=== PATIENT | female | born 1945 | race Caucasian/White ===

== ENCOUNTER → 2016-09-16 | Outpatient (CLI) | payer MEDICARE ==
[~2016-09-16] MED LIST: BENA25TA8 PO; CITA20TA4 PO; CLON.5 PO; DIPH25CA PO; LEVO25TA4 PO; LIPI10TA PO; MILK250C PO; MILK250C2 PO; MULT-135 PO; RED600TA PO; REDCAP2 PO; SINE10100 PO; SYNT25TA PO; TAB-TAB PO; VITA-13 PO; VITA100017 PO; VITA100036 PO; VITA10007 PO; VITA50TA PO; ZOLO50TA PO
--- NOTE | 2016-09-17 22:12 | EKG ---
Date Performed: 09/16/2016 Time Performed: 12:30:27 PTAGE: 71 years EKG: Sinus rhythm WITH SHORT KS INTERVAL Compared to previous tracing, the KS interval has shortened. BORDERLINE ECG PREVIOUS TRACING : 04/24/2015 10.36 DOCTOR: Louise Kraus Interpretating Date/Time 09/17/2016 22:10:23
== END ==
LOC: HCAV 12:18
PROVIDERS: ATTEND Surgery
DX: C80.1 Malignant (primary) neoplasm, unspecified (principal); R94.31 Abnormal electrocardiogram [ECG] [EKG]
CPT/HCPCS: 93005

== ENCOUNTER → 2016-09-29 | Day surgery (SDC) | payer MEDICARE ==
[~2016-09-29] VITALS: Ht 170.2 cm; Wt 87.2 kg
[~2016-09-29] MED LIST changes: +*Lactated Ringer's INJ 1,000 ML ONE; +ACETAMINOPHEN 1000 MG/100 ML VIAL IV ONE; +ACETAMINOPHEN/HYDROcodone 325 MG/5 MG TAB ONE; -BENA25TA8 PO; +BUPIVACAINE HCL PF 0.5% 30 ML VIAL ONE; +LACTATED RINGER'S 1000 ML INJ 1,000 ML ONE; +MIDAZOLAM HCL 2 MG/2 ML VIAL ONE; -MILK250C2 PO; +MORPHINE SULFATE 4 MG/ML INJ ONE; +ONDANSETRON HCL 4 MG/2 ML VIAL IV PUSH ONE; +ONDANSETRON HCL 4 MG/2 ML VIAL ONE; +PROPOFOL 200 MG/20 ML AMP IV ONE; -RED600TA PO; -SYNT25TA PO; -TAB-TAB PO; -VITA-13 PO; -VITA100017 PO; +ceFAZolin 2 GM PREMIX 50 ML ONE
[2016-09-29 13:36] VITALS: PULSE 86
[2016-09-29 14:15] VITALS: PULSE 79
[2016-09-29 14:30] VITALS: TEMP 97.9
[2016-09-29 15:10] VITALS: BP 112/58; PULSE 80; RESP 14; O2SAT 97
--- NOTE | 2016-10-05 13:49 | MP ---
cc: LETICIA TAMAYO DATE OF SURGERY: 09/29/2016 PREOPERATIVE DIAGNOSIS Metastatic ovarian carcinoma to the right axilla. POSTOPERATIVE DIAGNOSIS Metastatic ovarian carcinoma to the right axilla. PROCEDURE PERFORMED Excision of right axillary lymph nodes. SURGEON Leticia Tamayo ANESTHESIA General via LMA device. INDICATION The patient is a 71-year-old with metastatic ovarian carcinoma. The PET scan appears to show disease isolated to the right axilla and Dr. Wilson has requested excision of the involved lymph nodes which are biopsy-proven metastatic ovarian carcinoma. The patient now presents for the procedure. FINDINGS At the time of surgery four lymph nodes were identified in the right axilla and the largest was approximately 3 cm in size in the axillary tail of Mont[place]. The other smaller nodes were between 1 and 2 cm. PROCEDURE After informed consent was obtained and site verification was performed, the patient was brought to the major operating room where she was given a single dose of IV Ancef and sequential compression hose were placed. The right chest and arm were prepped and draped in sterile fashion. An incision was anesthetized at the inferior aspect of the right axillary hairline and electrocautery dissection was then used to divide the clavipectoral fascia and enter the level I axilla. Four level I lymph nodes were identified which were palpable and enlarged. Each was circumferentially dissected free from surrounding structures using the Harmonic scalpel with the largest node being in the axillary tail of Montano. Hemostasis was easily obtained with the Harmonic scalpel and the nodes were sent as a permanent right axillary specimen. Good hemostasis was noted and a stab wound was created along the anterior axillary line. A 10-Portuguese MARCELINA drain was placed in the axilla and secured to the skin with a 3-0 nylon suture. The wound was then closed using interrupted 3-0 Vicryl subcutaneous sutures and a 4-0 Monocryl subcuticular suture. Steri-Strips and a sterile dressing were applied. The patient tolerated the procedure well with minimal blood loss and she was brought to the recovery room in good condition. All sponge and needle counts were correct at the conclusion of the case. MD MAURICE Fang/ANNE-MARIE /1:50 PM /1:44 PM
== END | disposition home or self-care (01) ==
LOC: CSDC 09:27
PROVIDERS: ATTEND Surgery
DX: C77.3 Secondary and unspecified malignant neoplasm of axilla and upper limb lymph nodes (principal); C56.9 Malignant neoplasm of unspecified ovary
CPT/HCPCS: 01610; 38500; 88307; J0131; J0690; J2250; J2270; J2405; J3010; J7120